=== PATIENT | male | born 1995 | race Caucasian/White ===

== ENCOUNTER → 2016-07-24 | Day surgery (SDC) | payer BC ==
[~2016-07-24] VITALS: Ht 165.1 cm; Wt 56.7 kg
[~2016-07-24] MED LIST: EPINEPHrine INJ 1 MG/ML 1ML VIAL/AMP As Ordered ONE; GLYCOPYRROLATE INJ 0.2 MG/ML 2 ML VIAL As Ordered ONE; IBUPROFEN 800 MG TAB PO PRN; LIDOCAINE 2% INJ 100 MG/5 ML SDV (FOR ANES.) As Ordered ONE; LIDOCAINE W/EPINEPHRINE 1% 20ML VIAL As Ordered ONE; LR 1,000 ML IV SCH; METHYLENE BLUE 0.5% (5MG/ML) 10 ML AMP (PROVAYBLUE)(Q9968 PER 1MG) As Ordered ONE; METOCLOPRAMIDE INJ 10MG/2ML VIAL (J2765) IV PRN; MIDAZOLAM INJ 2 MG/2 ML VIAL (J2250) As Ordered ONE; NEOSTIGMINE 1MG/ML 5 ML SYRINGE (J2710) As Ordered ONE; ONDANSETRON 4MG/2ML VIAL (J2405) As Ordered ONE; ONDANSETRON 4MG/2ML VIAL (J2405) IV PRN; OXYMETAZOLINE NASAL SPRAY (AFRIN) As Ordered ONE; PERCOCET 5MG/325MG TAB PO PRN; PROPOFOL 200 MG/20 ML VIAL As Ordered ONE; ROCURONIUM BROMIDE 50 MG/5 ML VIAL As Ordered ONE; SING10TA32 PO; SUGAMMADEX SODIUM 500 MG/5 ML VIAL (BRIDION) As Ordered ONE; dexameTHASONE 4 MG/ML 1ML VIAL (J1100) As Ordered ONE; fentaNYL 100 MCG/2 ML INJECTION (J3010) IV PRN; fentaNYL 250 MCG/5 ML INJECTION (J3010) As Ordered ONE
[2016-07-24] MEDS: PERCOCET 5MG/325MG TAB PO PRN ×2 (14:17→14:57)
[2016-07-24 15:15] VITALS: BP 139/76
--- NOTE | 2016-07-28 12:23 | RO ---
DATE OF PROCEDURE: 07/24/2016 PREOPERATIVE DIAGNOSES: 1. Deviated septum. 2. Hypertrophic turbinates. POSTOPERATIVE DIAGNOSES: 1. Deviated septum. 2. Hypertrophic turbinates. PROCEDURE: Septoplasty and partial reduction inferior turbinates. SURGEON: Dr. Christian Slater RN GERIATRIC: ANESTHESIA: General endotracheal. INDICATIONS: This is a 20-year-old with long history of nasal obstruction and congestion unrelieved by medical therapy. DESCRIPTION OF PROCEDURE: Satisfactory general endotracheal anesthesia administered. The nose was prepared for surgery by placing cotton-soaked pledgets with Afrin solution to nasal cavity bilaterally. Then, 1% Xylocaine with 1:100,000 epinephrine was used to inject into the nasal septum and inferior turbinates. A [place] incision was made on the left side of the nose. A mucoperichondrial flap and envelope was created on the left side of the nasal septum and carried down to the junction of the bony and cartilaginous septum. This was then with an elevator, and an envelope was then created on the right side of the septum. A Jerica scissors was used to make a cut high in the perpendicular plate in the midportion of the vomer, and a central segment of the bony septum was resected. Next, with the round knife on the Carina elevator, a strip of cartilage was resected from the floor of the nose, mobilizing the quadrilateral cartilage and creating a swinging door. Then, a central segment of cartilaginous septum was resected, preserving a 1 cm dorsal and caudal strut. Double-action rongeur was used to take down deflected portions of the perpendicular plate, as well. Finally, the maxillary crest spur was taken down after elevating mucoperiosteum off both sides of it with a chisel. A segment of the resected cartilage was morselized and placed back into the septal envelope. The incision was closed using an interrupted #5-0 chromic suture. Then, a #4-0 plain suture was placed in a [id number] fashion through the two leaves of mucoperichondrium to appose them. Next, the inferior turbinates were medially infractured. A #15 blade was used to make an incision on the anterior tip of the inferior turbinate. With a Bourbon elevator, a mucoperiosteal tunnel was created on the medial side of the turbinate. Then, the microdebrider with a 2.9 mm blade was inserted into the tunnel, and the underlying turbinate bone was weakened and partially resected using the microdebrider. Then, the turbinate was laterally outfractured. The posteroinferior tip of the turbinate was then cauterized with suction cautery. Completing the surgery, Martins splints were placed into the nose and sewn to the columella with a #2-0 Prolene suture. The pharyngeal pack was removed. The throat was suctioned. The patient was awakened, extubated and sent to recovery in satisfactory condition. He will be seen back in the office in 3 days for splint removal.
== END | disposition home or self-care (01) ==
LOC: M SDC 08:28
PROVIDERS: ATTEND Specialist
DX: J34.2 Deviated nasal septum (principal); J34.3 Hypertrophy of nasal turbinates; R07.9 Chest pain, unspecified; G47.30 Sleep apnea, unspecified; Z79.899 Other long term (current) drug therapy; J45.909 Unspecified asthma, uncomplicated; F31.9 Bipolar disorder, unspecified; F12.10 Cannabis abuse, uncomplicated
CPT/HCPCS: 30140; 30520; 88300; J1100; J2250; J2405; J3010

== ENCOUNTER 2020-09-04 00:11 | Inpatient (IN) | payer BC, MEDICAID, OTHER, SELFPAY ==
[~2020-09-04] VITALS: Ht 167.6 cm; Wt 59.8 kg
[~2020-09-04 00:11] MED LIST changes: -EPINEPHrine INJ 1 MG/ML 1ML VIAL/AMP As Ordered ONE; -GLYCOPYRROLATE INJ 0.2 MG/ML 2 ML VIAL As Ordered ONE; -IBUPROFEN 800 MG TAB PO PRN; -LIDOCAINE 2% INJ 100 MG/5 ML SDV (FOR ANES.) As Ordered ONE; -LIDOCAINE W/EPINEPHRINE 1% 20ML VIAL As Ordered ONE; -LR 1,000 ML IV SCH; -METHYLENE BLUE 0.5% (5MG/ML) 10 ML AMP (PROVAYBLUE)(Q9968 PER 1MG) As Ordered ONE; -METOCLOPRAMIDE INJ 10MG/2ML VIAL (J2765) IV PRN; -MIDAZOLAM INJ 2 MG/2 ML VIAL (J2250) As Ordered ONE; -NEOSTIGMINE 1MG/ML 5 ML SYRINGE (J2710) As Ordered ONE; -ONDANSETRON 4MG/2ML VIAL (J2405) As Ordered ONE; -ONDANSETRON 4MG/2ML VIAL (J2405) IV PRN; -OXYMETAZOLINE NASAL SPRAY (AFRIN) As Ordered ONE; -PERCOCET 5MG/325MG TAB PO PRN; -PROPOFOL 200 MG/20 ML VIAL As Ordered ONE; -ROCURONIUM BROMIDE 50 MG/5 ML VIAL As Ordered ONE; -SUGAMMADEX SODIUM 500 MG/5 ML VIAL (BRIDION) As Ordered ONE; -dexameTHASONE 4 MG/ML 1ML VIAL (J1100) As Ordered ONE; -fentaNYL 100 MCG/2 ML INJECTION (J3010) IV PRN; -fentaNYL 250 MCG/5 ML INJECTION (J3010) As Ordered ONE
[2020-09-04] MEDS ORDERED: MAALOX 30 ML SUSP *UDC PO PRN (03:45)
[2020-09-04] MEDS ORDERED: OLANZapine ORAL DISINTEGRATING TAB 5MG PO PRN (03:45)
[2020-09-04] MEDS ORDERED: MOM 30ML SUSPENSION UDC PO PRN (03:45)
[2020-09-04] MEDS ORDERED: ACETAMINOPHEN TAB 650MG DOSE (2X325MG) PO PRN (03:45)
[2020-09-04] MEDS ORDERED: traZODone 50 MG TAB PO PRN (03:45)
[2020-09-04] MEDS ORDERED: hydrOXYzine 25 MG TAB PO PRN (03:45)
[2020-09-04 04:48] VITALS: BP 114/67
[2020-09-04] MEDS: PALIPERIDONE 3 MG ER TAB (INVEGA) PO SCH ×2 (09:00→21:00)
--- NOTE | 2020-09-04 13:07 | HPEPDOC ---
[facility] Medical History & Physical Date of Admission September 04, 2020 Date of Service: September 04, 2020 History and Physical Chief complaint: Who presented to the emergency room with complaint of depression / suicidal ideation History of present illness: Patient is a 24-year-old male who reported that he had history of COVID19 infection mid-July. Patient reported that he did not get tested at that time and did not require any treatment. He remained at home under quarantine with his girlfriend. Patient reported that after this. Patient was experiencing symptoms of depression, suicidal ideation. Patient presented to the emergency room at [facility] was transferred to [facility] for further evaluation and was admitted to the inpatient unit under the care of psychiatry. Patient was seen and examined at the bedside. He reported that he does not have any headache, nausea, vomiting, chest pain, shortness breath, palpitations, cough, abdominal pain, diarrhea, or urinary discomfort or constipation. Patient was that his appetite is poor and has experiencing some weight loss. Unable to quantify. Past Medical History: Self-reported history of COVID19 in July (did not test) Past Surgical History: Right clavicular plate Tonsillectomy, adenoidectomy Septoplasty Allergies: See below Medications: See below Family History: - Family history was reviewed and noncontributory Social History: - Patient reports an occasional use of tobacco. Denies any EtOH use. Reports occasional marijuana use - Lives with girlfriend Review of Systems: 10 point review of systems complete, all negative otherwise stated in HPI Physical exam: - Vitals: BP [114/67], HR [71], RR [16], Sat [99%RA], Temp [97.8F] - General: Sitting up in bed, No acute distress, Speaking in full sentences, AAOx3 - HEENT: NC, AT, PERRLA - CVS: RRR, +S1S2 - Lungs: Fair air entry bilaterally, No appreciable wheezing / rales / rhonchi - Abdomen: Soft, Non-distended, Non-tender - Extremities: No lower extremity edema, No calf tenderness - Neuro: No focal motor or sensory deficit - Skin: No visible rashes Labs: See below Imaging: See below EKG: See below Assessment and Plan: Suicidal ideation / Depression - Patient has been admitted to inpatient mental health unit under the care of psychiatry - Currently being managed by psychiatry Lab work from [facility] was reviewed - UDS positive for cannabinoids Self-reported COVID-19 in Mid-July - Patient had reported that his girlfriend was positive and he was experiencing symptoms at that time, however, did not seek any treatment or testing - Currently remains asymptomatic and saturating well on room air - COVID19 test 05/06/20: Negative - COVID19 test 09/03/20: Negative - Will continue supportive care DVT prophylaxis - Will c/w early ambulation Thank you for this consultation; hospital service will now sign off, please reconsult as needed Vital Signs Vital Signs Date Time Temp Pulse Resp B/P (MAP) Pulse Ox O2 Delivery O2 Flow Rate FiO2 09/04/20 04:48 97.8 71 16 114/67 (83) 99 Room Air Home Medications Unable to Obtain Active Prescriptions or Reported Meds Allergies Coded Allergies: No Known Allergies (Unverified , 07/24/16) JOHN RAMESH MD September 04, 2020 13:07
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
[2020-09-05 06:13] VITALS: BP 122/70
[2020-09-05] MEDS: PALIPERIDONE 3 MG ER TAB (INVEGA) PO SCH ×2 (09:43→21:00)
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
[2020-09-06 06:53] VITALS: BP 134/92
[2020-09-06] MEDS: PALIPERIDONE 3 MG ER TAB (INVEGA) PO SCH ×2 (08:24→21:00)
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
[2020-09-06 16:12] VITALS: BP 125/66
[2020-09-07 06:41] VITALS: BP 142/68
[2020-09-07] MEDS: PALIPERIDONE 3 MG ER TAB (INVEGA) PO SCH ×2 (08:30→20:59)
--- NOTE | 2020-09-07 12:39 | MHIPNPDOC ---
[facility] Progress Note Progress Note DATE OF SERVICE: 09/07/20 This is a 24-year-old white male admitted due to suspected acute psychotic episode. He was not able to fully cooperate with the interview yesterday. However, today he is presenting with them much better organized manner and is a very pleasant, cooperative, and in good control. Patient to reports that after he had the developed severe Carlos, 19 symptoms. He wasn't feeling quite confused, somewhat odd feeling distant and depressed prior to presentation. He denies having any hallucinations. Denies having any paranoid thoughts and does not believe that he was in any psychotic state. 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 He is much more animated and appropriate and verbally productive and is denying any psychotic symptoms and denies any serious depression. He does admit that to his daily use of cannabis might have contributed to this and is not the going to smoke anymore and states that he doesn't have any serious mood symptoms and feeling safe to return home. HISTORY: Multiple previous history of psychiatric treatment. VITAL SIGNS: See below. NEW TEST RESULTS: . CURRENT MEDICATIONS: See below. MENTAL STATUS EXAMINATION: Patient is a 24 -year old male, who is , pleasant and cooperative. Speech: Is rational, coherent and productive. Language skills are good. Thought processes including: Organized and coherent . Thought content: More paranoid symptoms. Abstract reasoning, and computation: Good . Description of associations: . Description of abnormal or psychotic thoughts: , No delusional thinking, and no paranoia. Judgment: Appears good. Insight: Appears good]. Orientation: , Well oriented. Recent and remote memory: , Good memory. Attention span and concentration: Good. Language: Clear. Fund of knowledge: Average. Mood: Euthymic. Affect: Appropriate and good range. DIAGNOSES: 1. Psychotic disorder, NOS. 2. . 3. . ASSESSMENT: Showing improvement MANAGEMENT PLAN: Plan for discharge tomorrow with follow-up outpatient counseling. TIME SPENT: 20 minutes Vital Signs Vital Signs Date Time Temp Pulse Resp B/P (MAP) Pulse Ox O2 Delivery O2 Flow Rate FiO2 09/07/20 06:41 98.7 108 16 142/68 (92) 98 Room Air Current Medications Current Medications Medications (Trade) Dose Ordered Sig/Marj Route PRN Reason Start Time Stop Time Status Last Admin Dose Admin Acetaminophen (Tylenol Tab) 650 mg Q6HP PRN PO HEADACHE or DISCOMFORT 09/04/20 03:45 09/05/20 09:43 Al Hydrox/Mg Hydrox/Simethicone (Mylanta) 30 ml Q4HP PRN PO HEARTBURN/INDIGESTION 09/04/20 03:45 Home Med (Med Rec Complete!) ASDIRECTED XX 09/04/20 03:55 09/04/20 03:58 DC Hydroxyzine HCl (Atarax) 25 mg Q4HP PRN PO ANXIETY 09/04/20 03:45 Magnesium Hydroxide (Milk Of Magnesia) 30 ml DAILYPRN PRN PO CONSTIPATION 09/04/20 03:45 Olanzapine (ZyPREXA ZYDIS) 5 mg Q6HP PRN PO AGITATION 09/04/20 03:45 Paliperidone (Invega) 3 mg BID PO 09/04/20 09:00 09/07/20 08:30 Trazodone HCl (Desyrel) 50 mg QHSP PRN PO INSOMNIA 09/04/20 03:45 Allergies Coded Allergies: No Known Allergies (Unverified , 07/24/16) CIELO FREIRE M.D. September 07, 2020 12:39
[2020-09-07 16:13] VITALS: BP 130/65
[2020-09-08 06:16] VITALS: BP 136/77
[2020-09-08] MEDS: PALIPERIDONE 3 MG ER TAB (INVEGA) PO SCH (08:39)
[2020-09-08] MEDS ORDERED: PALI1TAB2 PO (09:20)
--- NOTE | 2020-09-08 09:50 | MHDSPDOC ---
[facility] Discharge Summary Discharge Summary DATE OF ADMISSION: September 04, 2020 at 03:44 DATE OF DISCHARGE: Sep 08 2020 DISCHARGE DIAGNOSES: 1. Psychotic disorder NOS. 2. . REASON FOR ADMISSION: 24-year-old, single male with no previous psychiatric history was admitted on 939 status. He was showing some odd behavior and suspected having suicidal thoughts after he experienced acute Covid 19, infection. Patient had the significant symptoms of Covid infection, but has not been hospitalized and recovered without any serious complications. He was not feeling sick anymore, but he was beginning to show some unusual or strange behavior. His family reports that the was not sleeping, was driving erratically with speed 100 miles an hour and reportedly made the some suicidal comments, but the patient denies making any suicidal or threats and denies having any suicidal intent. CONSULTANTS INVOLVED: none TREATMENT AND PROGRESS ON THE UNIT : Patient was seen in therapeutic environment with the supportive therapy and was given Invega 3 mg twice a day and he is fully cooperate HOSPITAL COURSE: Patient had a rather uneventful stay on the unit. He was pleasant, cooperative, maintained good control and didn't exhibit any dangerous or suicidal behavior. He did admit that he was smoking cannabis daily, which might have the contributed to this experience. He admits that he was not sleeping and he was feeling then strange but since his admission. He is feeling much better, has not experienced any confusion, paranoia or serious depression and denies any suicidal thoughts. He is tolerating the medicine without any side effects and is becoming much more animated, spontaneous and pleasant and is willing to accept outpatient follow-up as arranged. DISCHARGE ASSESSMENT: Much improved and stable and not suicidal MENTAL STATUS EXAMINATION ON DISCHARGE: Patient is a 24-year old male, who is in no acute distress. Speech is organized. Language skills are good. Thought processes including: Clear. Thought content: Without any abnormal thoughts. Abstract reasoning, and computation: Good . Description of associations: Organized . Description of abnormal or psychotic thoughts: Non-. Judgment: Good. Insight: Good . Orientation to orientated. Recent and remote memory: Good]. Attention span and concentration: Good. Language: . Fund of knowledge: Average. Mood: Euthymic. Affect: , Appropriate, and for range. MEDICATIONS ON DISCHARGE: - InVega 3 mg twice a day for 7 days for . - for .maintenance - for . PLAN/FOLLOWUP ARRANGEMENTS: As arranged. The amount of time spent in the coordination of care for this patient was appro ximately 35 minutes. ETOH/Disorder Med Rx ETOH/DRUG DISORDER RX: N/A Vital Signs/I&Os Vital Signs Date Time Temp Pulse Resp B/P (MAP) Pulse Ox O2 Delivery O2 Flow Rate FiO2 09/08/20 06:16 98.0 78 18 136/77 (96) 96 Room Air Medications Scheduled Paliperidone (Paliperidone ER) 3 Mg Tab.er.24, 3 MG PO BID for for maintenance therapy, #14 Allergies Coded Allergies: No Known Allergies (Unverified , 09/09/20) no known allergies CIELO FREIRE M.D. September 08, 2020 09:50
== END 2020-09-08 10:37 | disposition home or self-care (01) | DRG 751 ==
LOC: M ED 00:11 → M ED INP 03:44 → M PSY 04:49
PROVIDERS: ADMIT Psychiatry & Neurology Psychiatry; ATTEND Psychiatry & Neurology Psychiatry
DX: F29 Unspecified psychosis not due to a substance or known physiological condition (principal); F17.210 Nicotine dependence, cigarettes, uncomplicated; F32.9 Major depressive disorder, single episode, unspecified; F12.10 Cannabis abuse, uncomplicated; Z86.16 Personal history of COVID-19

== ENCOUNTER 2020-11-28 11:02 | Emergency (ER) | payer MEDICAID, OTHER ==
[~2020-11-28] VITALS: Ht 167.6 cm; Wt 58.8 kg
[~2020-11-28 11:02] MED LIST changes: +PALI1TAB2 PO
[2020-11-28 14:27] LABS: BASO # 0.1 10^3/uL (0.0-0.2); BASO % 0.4 % (0.0-1.0); EOS % 0.3 % (0.0-3.0); HEMATOCRIT 43.8 % (42.0-52.0); HEMOGLOBIN 14.7 g/dl (13.5-17.5); LYMPH # 1.4 10^3/uL (1.5-5.0); LYMPH % 12.2 % (24.0-44.0); MEAN CORPUSCULAR HEMOGLOBIN 29.4 pg (27.0-33.0); MEAN CORPUSCULAR HGB CONC 33.6 g/dl (32.0-36.5); MEAN CORPUSCULAR VOLUME 87.6 fl (80.0-96.0); MONO # 0.5 10^3/uL (0.0-0.8); MONO % 3.9 % (2.0-8.0); NEUTROPHILS # 9.5 10^3/uL (1.5-8.5); NEUTROPHILS % 82.8 % (36.0-66.0); PLATELET COUNT, AUTOMATED 348 10^3/uL (150-450); WHITE BLOOD COUNT 11.5 10^3/uL (4.0-10.0)
--- NOTE | 2020-11-28 15:03 | REP ---
INDICATION: 20 pound wt loss, night sweats. COMPARISON: None. TECHNIQUE: Upright PA and lateral images of the chest were obtained. FINDINGS: The lungs are clear. The heart borders, mediastinum and pulmonary vascular pattern are normal. The upper abdominal bowel gas pattern is normal. There has been screw and plate fixation of a healed fracture of the right clavicle. There is mild levoscoliosis of the thoracic spine. IMPRESSION: 1. No evidence of acute cardiopulmonary pathology. 2. Other findings as noted. <Electronically signed by Ozzie Dia > 11/28/20 [id number]
[2020-11-28 15:10] LABS: ALBUMIN 3.5 GM/DL (3.2-5.2); ALT/SGPT 32 U/L (12-78); BILIRUBIN,DIRECT < 0.1 MG/DL (0.0-0.2); BILIRUBIN,TOTAL 0.5 MG/DL (0.2-1.0); BLOOD UREA NITROGEN 13 MG/DL (7-18); CALCIUM LEVEL 9.1 MG/DL (8.5-10.1); CARBON DIOXIDE LEVEL 28 MEQ/L (21-32); CHLORIDE LEVEL 100 MEQ/L (98-107); CREATININE FOR GFR 0.86 MG/DL (0.70-1.30); FREE T4 1.14 NG/DL (0.76-1.46); GLOMERULAR FILTRATION RATE > 60.0 (>60); GLUCOSE, FASTING 81 MG/DL (70-100); LIPASE 186 U/L (73-393); POTASSIUM SERUM 4.4 MEQ/L (3.5-5.1); SODIUM LEVEL 136 MEQ/L (136-145); TOTAL PROTEIN 8.1 GM/DL (6.4-8.2)
--- NOTE | 2020-11-28 15:24 | REP ---
INDICATION: severe back pain, 20 pound weight loss, night sweats. COMPARISON: None. TECHNIQUE: Contiguous axial projection images were obtained through the lumbar spine. 2D sagittal and coronal reconstructions were performed. FINDINGS: There is maintenance of the normal lumbar lordosis. The intervertebral disc spaces of the lumbar spine are preserved. The vertebral bodies are normal. There is no spondylolisthesis. The facet joints are normal. There are no abnormalities of the spinal canal. The SI joints appear normal. The visualized perivertebral soft tissues have a normal unenhanced appearance. IMPRESSION: Normal CT evaluation of the lumbar spine. <Electronically signed by Ozzie Dia > 11/28/20 [id number]
[2020-11-28] MEDS ORDERED: PROHANCE 279.3MG/ML 15ML VIAL As Ordered ONE (16:15)
[2020-11-28 17:03] VITALS: BP 121/73
[2020-11-28] MEDS ORDERED: NS 1,000 ML IV ONE (17:10)
[2020-11-28] MEDS ORDERED: KETOROLAC 30 MG/ML 1ML VIAL IV ONE (17:10)
--- NOTE | 2020-11-28 17:50 | REPVR ---
PROCEDURE INFORMATION: Exam: MR Lumbar Spine Without and With Contrast Exam date and time: 11/28/2020 4:22 PM Age: 25 years old Clinical indication: Low back pain; Additional info: Severe back pain, weight loss, night sweats TECHNIQUE: Imaging protocol: Multiplanar magnetic resonance images of the lumbar spine without and with intravenous contrast. Contrast material: PROHANCE; Contrast volume: 10 ml; Contrast route: INTRAVENOUS (IV); COMPARISON: CT Spine, lumbar w/o contrast 11/28/2020 1:55 PM FINDINGS: Vertebrae: Unremarkable vertebral bodies. No abnormal bony enhancement post IV contrast. Spinal cord: Normal signal in the distal thoracic cord and conus medullaris. No cord compression. L1-L2: No significant disc disease. No significant spinal canal stenosis. No neural foraminal stenosis. L2-L3: No significant disc disease. No significant spinal canal stenosis. No neural foraminal stenosis. L3-L4: No significant disc disease. No significant spinal canal stenosis. No neural foraminal stenosis. L4-L5: No significant disc disease. No significant spinal canal stenosis. No neural foraminal stenosis. Small bilateral posterior facet joint effusions are present. L5-S1: Minimal posterior disc bulging. No significant spinal canal stenosis. No neural foraminal stenosis. Small bilateral posterior facet joint effusions are present. Soft tissues: Unremarkable prevertebral and posterior paraspinal soft tissues. No abnormal enhancement post IV contrast. IMPRESSION: 1. Small bilateral posterior facet joint effusions are present at levels L4-S1. 2. Minimal posterior disc bulging at L5/S1, with no significant spinal or neuroforaminal stenosis. Electronically signed by: Derek Noland On 11/28/2020 17:50:35 PM
[2020-11-28 18:27] LABS: AMPHETAMINES LEVEL URINE NEGATIVE (NEGATIVE); BARBITURATES URINE NEGATIVE (NEGATIVE); BENZODIAZEPINES URINE NEGATIVE (NEGATIVE); CANNABINOIDS URINE POSITIVE (NEGATIVE); COCAINE METABOLITE URINE NEGATIVE (NEGATIVE); METHADONE URINE NEGATIVE (NEGATIVE); OPIATES URINE NEGATIVE (NEGATIVE); PHENCYCLIDINE URINE NEGATIVE (NEGATIVE)
--- NOTE | 2020-11-29 06:07 | ED PDOC ---
Post-Departure Follow-Up mri ls spine faxed to [facility] for fu. pt left ama Lorrie Victoria MD Nov 29, 2020 06:07
== END 2020-11-28 17:54 | disposition left against medical advice (07) ==
LOC: M ED 11:02
DX: R51.9 Headache, unspecified (principal); Z53.9 Procedure and treatment not carried out, unspecified reason; M25.48 Effusion, other site; M51.27 Other intervertebral disc displacement, lumbosacral region; M51.34 Other intervertebral disc degeneration, thoracic region; R63.4 Abnormal weight loss; R61 Generalized hyperhidrosis; Z87.442 Personal history of urinary calculi
CPT/HCPCS: 36415; 71046; 72131; 72158; 80048; 80076; 80307; 81001; 83690; 84439; 84443; 85025; 86617; 86666; 87798; 99284; A9576